=== PATIENT | male | born 1965 | race Caucasian/White ===

== ENCOUNTER → 2019-01-20 | Outpatient (CLI) | payer OTHER ==
[~2019-01-20] MED LIST: IBUP800 PO; METPRE4DP PO; OLOP.1OPSO OS; PENVK500 PO
[2019-01-20 13:47] LABS: Stool Occult Bld Immuno 1 Positive (NEGATIVE)
== END | disposition home or self-care (01) ==
LOC: LAB SHORT 11:05 → LAB 11:05
PROVIDERS: Internal Medicine Gastroenterology
DX: Z12.11 Encounter for screening for malignant neoplasm of colon (principal)
CPT/HCPCS: G0328

== ENCOUNTER 2019-04-29 09:37 | Day surgery (SDC) | payer OTHER ==
[~2019-04-29] VITALS: Ht 175.3 cm; Wt 76.1 kg
== END 2019-04-29 11:15 | disposition home or self-care (01) ==
LOC: ORSCSDS 09:37
PROVIDERS: Internal Medicine Gastroenterology
PROC: 0DJD8ZZ Inspection of Lower Intestinal Tract, Via Natural or Artificial Opening Endoscopic (ICD-10-PCS; principal; 2019-04-29 11:00)
DX: K92.1 Melena (principal); K57.30 Diverticulosis of large intestine without perforation or abscess without bleeding; K64.8 Other hemorrhoids; R10.9 Unspecified abdominal pain; F41.8 Other specified anxiety disorders; I25.2 Old myocardial infarction; Z79.899 Other long term (current) drug therapy
CPT/HCPCS: J2704; J7120

== ENCOUNTER 2019-09-05 08:02 | Day surgery (SDC) | payer OTHER ==
[~2019-09-05] VITALS: Ht 175.3 cm; Wt 75.8 kg
[~2019-09-05 08:02] MED LIST changes: +MYRBETRIQ25 MG
--- NOTE | 2019-09-05 11:33 | NUR ---
09/05/19 1133 Alison Potter 1117 WHEN PT. GOT UP INTO RECLINER PT. WAS ASKED IF HE HAD ANY PAIN. PT. STATED "JUST A TINY BIT." TINY BIT OF PAIN IN LEFT GROIN. PT. ALSO VERBALIZES NOT BEING NAUSEA. PT. EATING SNACK & DRINKING APPLE JUICE & WATER. PT. GIVEN A WARM BLANKET.
== END 2019-09-05 12:01 | disposition home or self-care (01) ==
LOC: ORSCSDS 08:02
PROVIDERS: Surgery
PROC: 0YU60JZ Supplement Left Inguinal Region with Synthetic Substitute, Open Approach (ICD-10-PCS; principal; 2019-09-05 09:30)
DX: K40.90 Unilateral inguinal hernia, without obstruction or gangrene, not specified as recurrent (principal); G51.0 Bell's palsy
CPT/HCPCS: C1781; J0690; J1100; J2001; J2250; J2405; J2704; J3010; J7120